=== PATIENT | female | born 1970 ===

== ENCOUNTER → 2019-01-29 | Outpatient (CLI) | payer OTHER ==
[~2019-01-29] MED LIST: FentaNYL CITRATE-PF 100 MCG/2 ML VIAL ONE; HYDROmorphone 2 MG/ML SYRINGE ONE; RINGERS SOLUTION,LACTATED 1,000 ML IV ONE
[2019-01-29 16:35] LABS: INFLUENZA TYPE A NEGATIVE FOR TYPE A (NEGATIVE); INFLUENZA TYPE B NEGATIVE FOR TYPE B (NEGATIVE)
== END | disposition home or self-care (01) ==
LOC: PUC 15:24
DX: H60.91 Unspecified otitis externa, right ear (principal)
CPT/HCPCS: 87430; 87804; J1170; J3010; J7120